=== PATIENT | female | born 1960 | race African-American/Black ===

== ENCOUNTER 2018-12-06 05:03 | Emergency (ER) | payer MEDICAID ==
[~2018-12-06] VITALS: Ht 170.2 cm; Wt 113.0 kg
[2018-12-06] MEDS ORDERED: HYDROCODONE/ACETAMINOPHEN 5/325MG TABLET PO ONE ×2 (05:30→11:15)
[2018-12-06 11:00] VITALS: BP 143/84
== END 2018-12-06 12:16 | disposition home or self-care (01) ==
LOC: ER 05:18
DX: S20.20XA Contusion of thorax, unspecified, initial encounter (principal); I10 Essential (primary) hypertension; E11.9 Type 2 diabetes mellitus without complications; Z98.890 Other specified postprocedural states; W10.8XXA Fall (on) (from) other stairs and steps, initial encounter; Y93.89 Activity, other specified; Y92.018 Other place in single-family (private) house as the place of occurrence of the external cause
CPT/HCPCS: 71101; 99283